=== PATIENT | female | born 1975 | race Caucasian/White ===

== ENCOUNTER 2020-12-13 18:21 | Emergency (ER) | payer OTHER ==
[~2020-12-13] VITALS: Ht 172.7 cm; Wt 113.4 kg
[2020-12-13] MEDS ORDERED: SUPER THERAVIT1 EACH PO (18:33)
[2020-12-13 18:45] LABS: ABSOLUTE LYMPHOCYTES 1.3 thou/uL (0.8-5.3); ABSOLUTE MONOCYTES 0.3 thou/uL (0.0-1.2); ABSOLUTE NEUTROPHILS 2.2 thou/uL (1.6-8.1); BASOPHILS 0.9 %; HEMATOCRIT 35.7 % (37.0-47.0); LYMPHOCYTES 33.2 %; MCH 31.1 pg (26.0-34.0); MCHC 33.6 g/dL (28.0-37.0); MCV 92.7 fL (80.0-100.0); MONOCYTES 8.2 %; NUCLEATED RBCS 0 /100WBC; PLATELET COUNT* 230 thou/uL (150-400); POLYS 56.7 %; RBC 3.85 mil/uL (4.20-5.00); RDW-CV 13.2 % (10.5-14.5); WBC 3.9 thou/uL (4.0-11.0)
[2020-12-13 18:53] LABS: ANION GAP 10 mmol/L (7-16); BUN 17 mg/dL (7-18); CALCIUM 8.1 mg/dL (8.5-10.1); CHLORIDE 108 mmol/L (98-107); CO2 23 mmol/L (21-32); CREATININE 0.6 mg/dL (0.6-1.3); GLUCOSE 111 mg/dL (70-99); POTASSIUM 3.6 mmol/L (3.5-5.1); SODIUM 141 mmol/L (136-145)
[2020-12-13 18:55] LABS: APTT 25.7 Seconds (25.0-31.3); INR 0.9
[2020-12-13 19:07] LABS: ALBUMIN 3.3 g/dL (3.4-5.0); ALKALINE PHOSPHATASE 133 U/L (46-116); CK-MB MASS < 0.5 ng/mL (<0.5-3.6); LIPASE 109 U/L (73-393); NT-PRO BRAIN NAT PEPTIDE 63 pg/mL (<300); SGOT 12 U/L (15-37); SGPT 18 U/L (30-65); TOTAL BILIRUBIN 0.3 mg/dL (<0.1-1.0); TOTAL PROTEIN 6.9 g/dL (6.4-8.2)
[2020-12-13] MEDS ORDERED: ZOFRAN ODT4 MG PO (19:31)
[2020-12-13 19:44] VITALS: BP 132/65
--- NOTE | 2020-12-14 10:10 | EKG ---
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
== END 2020-12-13 19:45 | disposition home or self-care (01) ==
LOC: M.ERS 18:21
PROVIDERS: Family Medicine
DX: K22.4 Dyskinesia of esophagus (principal); Z88.0 Allergy status to penicillin

== ENCOUNTER 2021-05-12 06:53 | Emergency (ER) | payer OTHER ==
[~2021-05-12] VITALS: Ht 170.2 cm; Wt 112.5 kg
--- NOTE | ~2021-05-12 | CON ---
[address] [address] CONSULTATION Name: CHERIE BACON Room: [facility] Bette#: [id number] Admission: 05/12/21 Attend Phys: Discharge: 05/12/21 Date of : 71 Report #: [id number] THIS REPORT FOR: cc: FAM - No family physician/PCP FAM - No family physician/PCP Sesar Vasquez MD [facility] ~ DATE OF CONSULTATION: 05/12/2021 CARDIOLOGY CONSULTATION HISTORY OF PRESENT ILLNESS: The patient is a 45-year-old single white female who came to the Emergency Room complaining of chest pain. The patient has no previous history of heart disease. She does have a history of morbid obesity, previously weighed, 5 feet 7 inches, 595 pounds. In 2009, she had gastric bypass in [place], [place]. She apparently had a stress test prior to the bypass surgery. She has no history of heart disease. She was doing well until this morning. She was walking out to her car when she felt a sharp pain in her chest, went into her shoulders and back. It made her nauseated and short of breath. She drove herself to the Emergency Room and was admitted for further evaluation and treatment. She denied the pain being related to food. She had no belching. She has had no bleeding. Denied any fever or cough. She did note her heart was racing, but she has had no syncope. Denied any lower extremity edema. PAST MEDICAL HISTORY: Cholecystectomy, hysterectomy, knee surgery. No history of hypertension, diabetes, hyperlipidemia. MEDICATIONS: She is on no medication. ALLERGIES: HAS ALLERGY TO PENICILLIN. FAMILY HISTORY: Negative for heart disease. SOCIAL HISTORY: She is , lives by herself here in [place]. 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 No smoking. Rarely uses alcohol. REVIEW OF SYSTEMS: She has had sleep apnea, used CPAP in the past. No history of stroke, asthma, liver disease, kidney disease, cancer, chronic skin condition. PHYSICAL EXAMINATION: GENERAL: Revealed a large middle-aged female, lying in bed. She appeared in no distress. VITAL SIGNS: She had a blood pressure of 110/60, pulse 60. She is afebrile. HEENT: She was anicteric. Conjunctivae pink. Mucosa was moist. [address] [address] CONSULTATION Name: CHERIE BACON Room: [facility]#: [id number] Admission: 05/12/21 Attend Phys: Discharge: 05/12/21 Date of : 71 Report #: [id number] NECK: Veins did not appear distended. No carotid bruits were heard. CHEST: Clear to auscultation. HEART: Regular rate and rhythm. No murmur. ABDOMEN: Obese. EXTREMITIES: Had no pitting edema. SKIN: Cool and dry. DIAGNOSTIC DATA: ECG showed a sinus rhythm, nonspecific ST-segment changes. There was incomplete right bundle-branch block. Her workup in the Emergency Room today, she had portable chest x-ray that showed normal heart size and clear lung granado. LABORATORY DATA: Sodium 144, creatinine 0.8. Her liver function studies were normal. Troponin 0.06. White blood cell count 6.0, hemoglobin 13.5. IMPRESSION AND RECOMMENDATIONS: 1. Chest pain. Atypical for angina. Suspect noncardiac. Recommend no further cardiac evaluation. 2. History of morbid obesity. 3. History of sleep apnea. By: [id number] Vasquez MD, [facility] /nt
[~2021-05-12 06:53] MED LIST: SUPER THERAVIT1 EACH PO; ZOFRAN ODT4 MG PO
[2021-05-12 07:32] LABS: ABSOLUTE BASOPHILS 0.1 thou/uL (0.0-0.2); ABSOLUTE LYMPHOCYTES 1.4 thou/uL (0.8-5.3); ABSOLUTE MONOCYTES 0.4 thou/uL (0.0-1.2); ABSOLUTE NEUTROPHILS 4.2 thou/uL (1.6-8.1); BASOPHILS 0.9 %; EOSINOPHILS 0.5 %; HEMATOCRIT 41.7 % (37.0-47.0); HEMOGLOBIN 13.5 gm/dL (12.0-15.0); LYMPHOCYTES 22.8 %; MCH 29.9 pg (26.0-34.0); MCHC 32.4 g/dL (28.0-37.0); MCV 92.3 fL (80.0-100.0); MONOCYTES 6.7 %; NUCLEATED RBCS 0 /100WBC; PLATELET COUNT* 232 thou/uL (150-400); POLYS 69.1 %; RBC 4.51 mil/uL (4.20-5.00); RDW-CV 13.2 % (10.5-14.5)
[2021-05-12 08:00] LABS: CALCIUM 8.5 mg/dL (8.5-10.1); CREATININE 0.8 mg/dL (0.6-1.3); POTASSIUM 3.7 mmol/L (3.5-5.1)
[2021-05-12 08:11] LABS: ALBUMIN 3.9 g/dL (3.4-5.0); MAGNESIUM 2.2 mg/dL (1.8-2.4); TOTAL BILIRUBIN 0.5 mg/dL (<0.1-1.0); TOTAL PROTEIN 7.8 g/dL (6.4-8.2)
[2021-05-12] MEDS ORDERED: FLEXERIL PO (09:57)
--- NOTE | 2021-05-12 09:58 | EKG ---
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1975 Requested By: Tre Pina Order Number: [id number] MD: Sesar Vasquez Measurements Intervals [place] Rate: 76 P: 34 [place]: 167 QRS: 1 QRSD: 110 T: 9 QT: 407 QTc: 458 Interpretive Statements Sinus rhythm Probable left atrial enlargement RSR' in V1 or V2, right VCD or RVH Nonspecific T abnrm, anterolateral leads Baseline wander in lead(s) V6 Compared to ECG 12/13/2020 18:26:19 RSR' in V1 or V2 now present Electronically Signed On 05-12-2021 9:58:47 CDT by Sesar Vasquez [email or web address] <ELECTRONICALLY SIGNED> By: Sesar Vasquez MD, FAC 05/12/2158 9 07 Sesar Vasquez MD, [facility] /EPI
[2021-05-12 10:20] VITALS: BP 100/50
== END 2021-05-12 10:20 | disposition home or self-care (01) ==
LOC: M.ERS 06:53
PROVIDERS: Emergency Medicine Emergency Medical Services
DX: R07.89 Other chest pain (principal); R11.0 Nausea; R06.02 Shortness of breath; E66.01 Morbid (severe) obesity due to excess calories; Z98.84 Bariatric surgery status; Z79.899 Other long term (current) drug therapy; Z88.0 Allergy status to penicillin